=== PATIENT | male | born 1950 | race Caucasian/White ===

== ENCOUNTER → 2021-01-12 | Outpatient (CLI) | payer MEDICARE, SELFPAY | LOC: EXRD 08:40 | DX: M54.6 Pain in thoracic spine (principal); M54.12 Radiculopathy, cervical region; M19.90 Unspecified osteoarthritis, unspecified site; M54.41 Lumbago with sciatica, right side; M47.816 Spondylosis without myelopathy or radiculopathy, lumbar region; M47.814 Spondylosis without myelopathy or radiculopathy, thoracic region | CPT/HCPCS: 72040; 72070; 72100 ==

== ENCOUNTER → 2021-01-31 | Outpatient (CLI) | payer OTHER, MEDICARE | LOC: KOH-I 08:00 | DX: M54.5 Low back pain (principal); M19.90 Unspecified osteoarthritis, unspecified site; V89.2XXS Person injured in unspecified motor-vehicle accident, traffic, sequela; M51.34 Other intervertebral disc degeneration, thoracic region | CPT/HCPCS: 72128 ==

== ENCOUNTER → 2021-07-31 | Outpatient (CLI) | payer MEDICARE | LOC: KOH-I 13:00 | DX: R91.8 Other nonspecific abnormal finding of lung field (principal) | CPT/HCPCS: 71250 ==

== ENCOUNTER → 2022-02-22 | Outpatient (CLI) | payer MEDICARE | LOC: KOH-I 10:19 | DX: R91.1 Solitary pulmonary nodule (principal); R93.89 Abnormal findings on diagnostic imaging of other specified body structures | CPT/HCPCS: 71250 ==